=== PATIENT | female | born 1955 | race Asian ===

== ENCOUNTER 2024-07-27 12:24 | Emergency (ER) | payer MEDICARE, OTHER ==
[~2024-07-27] VITALS: Ht 160 cm; Wt 68.2 kg
[2024-07-27 12:29] VITALS: BP 121/93; PULSE 88; RESP 18; TEMP 97.9; O2SAT 99
[2024-07-27] MEDS ORDERED: LEVO75 PO (12:36)
[2024-07-27] MEDS ORDERED: METO25 PO (12:36)
[2024-07-27] MEDS ORDERED: ATOR10TA PO (12:36)
[2024-07-27] MEDS: ACETAMINOPHEN 325 MG TABLET PO ONE (13:06)
[2024-07-27] MEDS: IBUPROFEN 600 MG TABLET PO ONE (14:50)
[2024-07-27] MEDS: ACETAMINOPHEN 500 MG TABLET PO ONE (14:50)
[2024-07-27] MEDS: ONDANSETRON HCL 4 MG/2 ML VIAL IM ONE (14:51)
[2024-07-27] MEDS: HYDROmorphone HCL 2 MG/ML SYRINGE IM ONE (14:51)
[2024-07-27] MEDS: BACITRACIN 0.9 GM PACKET OINTMENT TP ONE (14:58)
[2024-07-27 15:35] LABS: BASOPHILS % (AUTO) 0.3 % (0.0-2.0); EOSINOPHILS % (AUTO) 0.4 % (1.0-6.0); HEMATOCRIT 43.8 % (36-46); HEMOGLOBIN 14.4 g/dL (12.0-16.0); LYMPHOCYTES % (AUTO) 18.5 % (22.0-44.0); MEAN CORPUSCULAR VOLUME 91 fL (80-100); MONOCYTES # (AUTO) 0.4 K/uL (0.1-1.0); MONOCYTES % (AUTO) 4.1 % (2.0-9.0); NEUTROPHILS # (AUTO) 8.4 K/uL (1.8-7.7); NEUTROPHILS % (AUTO) 76.7 % (40.0-70.0); PLATELET COUNT (AUTO) 264 K/uL (150-450); RED CELL DISTRIBUTION WIDTH 12.9 % (11.5-14.5)
[2024-07-27 15:36] LABS: ANION GAP 10 mmol/L (8-16); CALCIUM, TOTAL 9.1 mg/dL (8.8-10.5); CARBON DIOXIDE 29 mmol/L (22-29); CHLORIDE 100 mmol/L (98-107); CREATININE 0.86 mg/dL (0.60-1.30); GLOMERULAR FILTR. RATE CALC > 60 mL/min (>60); GLUCOSE,RANDOM 120 mg/dL (70-110); SODIUM SERUM 139 mmol/L (136-145); UREA NITROGEN, BLOOD 12 mg/dL (7-18)
[2024-07-27 15:56] LABS: PROTHROMBIN TIME 10.1 SEC (9.4-11.6)
[2024-07-27] MEDS ORDERED: HYDR-4062 PO (16:51)
[2024-07-27] MEDS ORDERED: ONDA-104 PO (16:52)
== END 2024-07-27 17:04 | disposition home or self-care (01) ==
LOC: EMS 12:24
DX: S52.531A Colles' fracture of right radius, initial encounter for closed fracture (principal); S00.81XA Abrasion of other part of head, initial encounter; E78.00 Pure hypercholesterolemia, unspecified; I10 Essential (primary) hypertension; W18.39XA Other fall on same level, initial encounter; Y93.89 Activity, other specified; Y92.481 Parking lot as the place of occurrence of the external cause; Y99.8 Other external cause status
CPT/HCPCS: 99285; 71045; 80048; 85025; 85610; 36415; 73090; 73110; 73130; 93005; 29125; 96372; J1171; J2405